=== PATIENT | male | born 1980 | race Caucasian/White ===

== ENCOUNTER 2018-03-06 08:59 | Emergency (ER) | payer MEDICAID, SELFPAY ==
[2018-03-06 09:12] VITALS: BP 142/87; PULSE 48; RESP 16; TEMP 36.7; O2SAT 96
--- NOTE | 2018-03-06 09:52 | DI.RPTCT_ITS ---
SYMPTOM/DIAGNOSIS: EPIGASTRIC PAIN WITH VOMITING. ON SUBOXONE CT ABDOMEN AND PELVIS: There are no prior comparison exams. Images were performed from the lung bases through the ischial tuberosities after IV and without oral contrast. The lung bases are clear. The liver , gallbladder, spleen, pancreas, adrenals and kidneys are unremarkable. The appendix appears normal. There is no bowel dilatation or inflammatory change. No free air or free fluid is seen. The bladder and prostate appear normal. Stool is seen in the rectum and sigmoid colon. IMPRESSION: No significant abnormality is identified in the abdomen or pelvis.
--- NOTE | 2018-03-06 09:54 | ED.GENADUL ---
Disposition Clinical Impression: Bradycardia, Gastritis Disposition: HOME Condition: Good Instructions: Gastritis (ED), Bradycardia (ED) Prescriptions: Ondansetron ODT [Zofran Odt] 4 mg PO BID PRN PRN #14 tabef PRN Reason: Referrals: NICO PADILLA [REPORT RECIPIENT] - 2 weeks Forms: Work Release Medical Decision Making - Lab Data Laboratory Results - last 24 hr 03/06/18 03/06/18 03/06/18 10:14 10:14 11:45 WBC 8.85 RBC 4.83 Hgb 14.8 Hct 43.4 MCV 89.9 MCH 30.6 MCHC 34.1 RDW 12.7 Plt Count 272 MPV 9.8 Immature Gran % 0.1 Neutrophils % 78.8 Lymphocytes % 12.5 Monocytes % 7.8 Eosinophils % 0.5 Basophils % 0.3 Absolute Neutrophils 6.97 H Absolute Lymphocytes 1.11 L Absolute Monocytes 0.69 Absolute Eosinophils 0.04 Absolute Basophils 0.03 Sodium 140 Potassium 4.0 Chloride 103 Carbon Dioxide 31.1 Anion Gap 5.9 BUN 15 Creatinine 1.09 Estimated GFR/1.73 m2 >= 60.00 Glucose 102 H Calcium 9.2 Magnesium 2.4 Total Bilirubin 0.8 AST 13 L ALT 25 Alkaline Phosphatase 52 Troponin I < 0.02 Total Protein 8.2 Albumin 4.6 Lipase 85 Urine Color Yellow Urine Clarity Clear Urine pH 7.0 Ur Specific [place] 1.015 Urine Protein Negative Urine Ketones 15 H Urine Blood Negative Urine Nitrite Negative Urine Bilirubin Negative Urine Urobilinogen 0.2 Ur Leukocyte Esterase Negative Urine Glucose Negative Urine Opiates Screen Urine Methadone Screen Ur Barbiturates Screen Ur Tricyclics Screen Ur Amphetamines Screen U Benzodiazepines Scrn Urine Cocaine Screen Ur THC Screen 03/06/18 11:45 WBC RBC Hgb Hct MCV MCH MCHC RDW Plt Count MPV Immature Gran % Neutrophils % Lymphocytes % Monocytes % Eosinophils % Basophils % Absolute Neutrophils Absolute Lymphocytes Absolute Monocytes Absolute Eosinophils Absolute Basophils Sodium Potassium Chloride Carbon Dioxide Anion Gap BUN Creatinine Estimated GFR/1.73 m2 Glucose Calcium Magnesium Total Bilirubin AST ALT Alkaline Phosphatase Troponin I Total Protein Albumin Lipase Urine Color Urine Clarity Urine pH Ur Specific [place] Urine Protein Urine Ketones Urine Blood Urine Nitrite Urine Bilirubin Urine Urobilinogen Ur Leukocyte Esterase Urine Glucose Urine Opiates Screen Positive Urine Methadone Screen Negative Ur Barbiturates Screen Negative Ur Tricyclics Screen Negative Ur Amphetamines Screen Negative U Benzodiazepines Scrn Negative Urine Cocaine Screen Negative Ur THC Screen Negative All values reviewed and within acceptable limits. Odd that he did not test positive for Benzos being we gave him Ativan. - EKG Data Rate: bradycardia Interpretation: no acute changes (reviewed by and with Dr. Murguia), nonspecific ST-T wave changes - Radiology Data Radiology results: report reviewed (CT by Dr. Hernandez: No significant abnormality is identified in the abdomen or pelvis. ) - Medical Decision Making Initial concern is SBO and/or pancreatitis. Will collect labs and CT to support. Possible withdrawals but I agree with him this is unlikely. Will provide Ativan IV for anxiety. Will hydrate with normal saline IV. I advised patient NPO until we confirm he does not have a surgical belly. Will treat gastritis with protonix. I apprised Harshda of lab impression and CT. He is feeling better after the medications. I discussed possible causes for the gastritis including but not limited to Suboxone, alcohol, ingestion, and less likely opiate withdrawal because he has not missed dose of his Suboxone. I advised he start PPI (Prilosec), continue Suboxone, and I will prescribe him Zofran and Ativan. I discussed risk of Benzo use and opiate use. I advised I would prescribe narcan as as well. I advise he f/u with Dr. Padilla to discuss bradycardia which he reports as new and the recurrent N/V. He again denies any cp or sob with the bradycardia. At this time we are waiting for the second troponin. He is asking for lunch. I advised liquid to bland diet for the next few days. Patient was able to keep fluids down but became nauseated after eating pudding. I discussed labs and CT scan and f/u. I prescribed Zofran only and advised to purchase Prilosec from [facility]. F/U with Dr. Padilla over the next two weeks to discuss ECG and detoxing from Suboxone and opiates all together. He is looking in to inpatient rehabilitation. Mother and Father are here to transport patient home. - Differential Diagnosis opiate withdrawels, SBO, pancreatitis, enteritis, gastritis History of Present Illness - General Chief complaint: Abd Prob Stated complaint: STOMACH PAINS Time Seen by Provider: 03/06/18 09:30 Source: patient, RN notes reviewed Mode of arrival: ambulatory Limitations: no limitations - History of Present Illness Initial comments: 38 y/o male here with c/o abdominal pain with N/V. Six days ago he began violently puking after having a few beers. This continued through the night but he seemed to feel better the next day. That night he started puking again. The next am he awakened feeling better until he ate and he began to puke again. This pattern continued for the next 5-6 days. He admits to taking Suboxone for a few years now for his opiate addiction. He started taking Percocet for previous injuries. 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 He also admits to heroin use but only by inhalation not by IV. He has battled opiate addiction for quite sometime. His is aware of him being here and she is concerned about withdrawal from opiates. She is encouraging him to get back into a program. He admits to being anxious. Denies any SI or HI. He is very concerned about his confidentiality with being here. He denies any cp, sob, or back pain. Onset/Timin -: week(s) Location: abdomen Radiation: non-radiation Severity scale (1-10): 7 Quality: aching, sharp Consistency: intermittent Improves with: other (pressure) Worsens with: none Associated Symptoms: nausea/vomiting Treatments Prior to Arrival: none - Related Data Buprenorphine/Naloxone [Suboxone 8 mg-2 mg Sl Film] 1 each SL DAILY 12/25/12 Colchicine 0.6 mg PO BID PRN 10/09/17 Ondansetron ODT [Zofran Odt] 4 mg PO BID PRN PRN #14 tabef 03/06/18 Allergies Allergy/AdvReac Type Severity Reaction Status Date / Time No Known Allergies Allergy Unverified 03/06/18 09:18 Review of Systems Constitutional: no symptoms reported Eyes: denies: vision change ENT: denies: throat pain, congestion Respiratory: no symptoms reported Cardiovascular: denies: chest pain Gastrointestinal: abdominal pain, nausea, vomiting. denies: diarrhea, hematemesis, melena Genitourinary: denies: dysuria Musculoskeletal: denies: back pain Skin: denies: rash Neurological: denies: headache Psychiatric: anxiety. denies: depression, auditory hallucinations, homicidal thoughts, suicidal thoughts Past Medical History - Past Medical History gout, depression, hx of prescription drug abuse Surgical history: other (left thumb tendon repair, pilonidal cyst) Psychiatric history: depression - Social History Alcohol use: rarely Drug use: none (current sobriety) General Exam - General Limitations: no limitations General appearance: alert, in no apparent distress - Head Head exam: Present: atraumatic, normal inspection - Eye Eye exam: Present: normal apperance - ENT ENT exam: Present: mucous membranes dry - Neck Neck exam: Present: normal inspection, full ROM - Respiratory Respiratory exam: Present: normal lung sounds bilaterally - Cardiovascular Cardiovascular Exam: Present: bradycardia, normal heart sounds - GI/Abdominal GI/Abdominal exam: Present: soft, normal bowel sounds (to lower quadrants), hypoactive bowel sounds (in upper quadrants). Absent: distended, tenderness (actually improved ith palpation), guarding, rebound, rigid - Extremities Exam Extremities exam: Present: normal inspection, full ROM - Back Exam Back exam: Present: normal inspection, full ROM. Absent: tenderness, CVA tenderness (R), CVA tenderness (L), rash noted - Neurological Exam Neurological exam: Present: alert, oriented X3, normal gait - Psychiatric Psychiatric exam: Present: normal affect, anxious - Skin Skin exam: Present: warm, dry, intact, normal color. Absent: rash Course Vital Signs - 24 hr 03/06/ 09:12 Temperature 36.7 C Pulse 48 L Respiratory 16 Rate Blood Pressure 142/87 Pulse Oximetry 96
[2018-03-06] MEDS: Ondansetron 4 MG/2 ML VIAL IVP (10:15)
[2018-03-06] MEDS: Normal Saline 1,000 ML 1000 ML IV ×2 (10:15→11:30)
[2018-03-06 10:19] LABS: Abs Immature Grans 0.01 k/cumm (0.0-0.09); Absolute Basophil Count 0.03 k/cumm (0.0-0.2); Absolute Eosinophil Count 0.04 k/cumm (0.0-0.7); Absolute Lymphocyte Count 1.11 k/cumm (1.2-3.4); Absolute Monocyte Count 0.69 k/cumm (0.11-0.7); Absolute Neutrophil Count 6.97 k/cumm (1.2-6.7); Basophils % 0.3; Eosinophils % 0.5; HCT 43.4 % (40.0-50.0); HGB 14.8 g/dL (13.5-17.5); Immature Grans % 0.1; Lymphocytes % 12.5; Mean Corp. HGB Concentration 34.1 g/dL (32.0-36.0); Mean Corpuscular Hemoglobin 30.6 pg (27.0-33.0); Mean Corpuscular Volume 89.9 fL (80-95); Mean Platelet Volume 9.8 fL (8.0-11.0); Monocytes % 7.8; Neutrophils % 78.8; Platelet Count 272 x1000/uL (130-400); RBC 4.83 m/cumm (4.50-6.00); RBC Distribution Width 12.7 % (11.8-14.1); White Blood Cell Count 8.85 k/cumm (4.4-10.8)
[2018-03-06] MEDS: Pantoprazole 40 MG VIAL IVP (10:20)
[2018-03-06] MEDS: LORazepam 2 MG/ML VIAL 1 MG IVP (10:25)
[2018-03-06 10:34] LABS: ALT 25 U/L (12-78); AST 13 U/L (15-37); Albumin 4.6 g/dL (3.4-5.0); Alkaline Phosphatase 52 U/L (46-116); Anion Gap 5.9 mmol/L (3-11); BUN 15 mg/dL (7-18); Bilirubin, Total 0.8 mg/dL (0.2-1.0); CO2 31.1 mmol/L (21.0-32.0); CREATININE 1.09 mg/dL (0.70-1.30); Calcium 9.2 mg/dL (8.5-10.1); Chloride 103 mmol/L (98-107); Glucose 102 mg/dL (70-100); Lipase 85 U/L (73-393); Magnesium 2.4 mg/dL (1.8-2.4); Sodium 140 mmol/L (136-145); Total Protein 8.2 g/dL (6.4-8.2)
[2018-03-06 10:35] LABS: Troponin I < 0.02 ng/mL (0.00-0.06)
[2018-03-06] MEDS: Omnipaque 350 MG/ML 100 ML BTL IJ (11:19)
[2018-03-06 11:58] LABS: Bilirubin Negative (Negative); Blood Negative (Negative); Clarity Clear; Glucose Negative (Negative); Ketones 15 mg/dL (Negative); Leukocyte Esterase Negative (Negative); Nitrite Negative (Negative); Specific Gravity 1.015 (1.005-1.025); Urobilinogen 0.2 EU/dL (Up TO 0.2)
[2018-03-06 12:07] LABS: *AMPHETAMINES SCREEN URINE Negative (Negative); *BARBITURATES SCREEN URINE Negative (Negative); *BENZODIAZEPINES SCREEN URINE Negative (Negative); Cannabinoids THC Negative (Negative); Cocaine Screen,Urine Negative (Negative); METHADONE URINE SCREEN Negative (Negative); OPIATES URINE SCREEN POSITIVE (Negative)
[2018-03-06 12:08] LABS: Tricyclic Antidepressants Negative (Negative)
[2018-03-06 13:33] LABS: Troponin I < 0.02 ng/mL (0.00-0.06)
[2018-03-06 13:55] VITALS: BP 148/79; PULSE 65; RESP 16; TEMP 36.7; O2SAT 99
== END 2018-03-06 14:00 | disposition home or self-care (01) ==
PROVIDERS: Nurse Practitioner Family; Emergency Provider Physician Assistant; PCP Internal Medicine
DX: K29.00 Acute gastritis without bleeding (principal); R00.1 Bradycardia, unspecified; R11.2 Nausea with vomiting, unspecified
CPT/HCPCS: 36415; 80053; 80307; 83690; 93005; 96361; 96374; 96375; 99285; 74177; 81003; 83735; 84484; 85025; 93010; J2060; J2405; J3490

== ENCOUNTER 2018-11-14 10:41 | Emergency (ER) | payer MEDICAID, SELFPAY ==
--- NOTE | 2018-11-14 10:55 | NUR.NOTE ---
at 1000 pt fell off a roof approximate 1.5 stories up. pt landed face first onto a wooden deck. the then fell of the deck into the snow at which point his left knee was punctured by a spike. pt denies LOC, headache or neck pain however pt did hit his head. primary complaint is puncture wound left knee and lower back pain.
[2018-11-14 10:59] VITALS: BP 121/78; PULSE 97; RESP 18; TEMP 36.8; O2SAT 97
--- NOTE | 2018-11-14 11:10 | ED.GENADUL_ITS ---
Discharge Plan Disposition Patient Disposition: HOME Condition: Stable Discharge Details Chief Complaint: Laceration Clinical Impression: Fall from roof, Abrasion of face, Back pain, Abrasion of back, Puncture wound of knee, left Primary Care Provider: Jose Enrique Padilla ED Provider: Shell Murguia Home Meds and New Rx's Prescriptions: New cephalexin [Keflex] 500 mg capsule 500 mg PO QID 1 Days Qty: 4 RF: 0 Discharge Instructions Instructions: Puncture Wound (ED), Head Injury (ED), Abrasion (ED), Back Pain (ED) Additional Instructions: Drink plenty of fluids and get plenty of rest. Alternate Tylenol and Motrin as needed and directed for pain. Take the antibiotics until finished. Follow-up with your scheduled appointment with your primary care doctor on Saturday. Call orthopedics to schedule a follow-up appointment for reevaluation in the next 1-2 weeks. Return immediately to the emergency department with any worsening or new concerning symptoms such as headaches, neck pain, chest pain, abdominal pain or any other concerns. Referrals: Irvin Estrada MD [ [facility] STAFF PHYSICIAN] - Discharge Data Discharge Date/Time-TO BE ENTERED AT DEPARTURE: 11/14/18 13:55 Discharge Physician: Shell Murguia Medical Decision Making 38-year-old male who presents with left-sided facial abrasion, back pain and left knee puncture wound after fall down 14 feet from a roof onto the ground. No LOC or vomiting. No neck pain, chest pain, abdominal pain, bilateral upper extremity or right lower extremity injury. Vitals within normal limits. Patient has left-sided facial abrasions. No step- off, trismus, jaw abnormality. No periorbital ecchymosis or tenderness. No evidence of globe rupture. He has superficial abrasions noted to his left lateral back but no midline C-spine/T-spine/L-spine or rib tenderness. Chest and abdomen nontender. He also has a left-sided lateral knee puncture wound with surrounding crepitus. No bony deformity. No pelvic instability. Due to his significant fall and complaints, would recommend a CT head and facial bones, chest x-ray versus CT chest and left knee x-ray. Patient is declining all imaging except left knee x-ray. Discussed with patient that there could be a concern for possible additional injuries that we may be missing without additional imaging and he is aware of these risks and still declining at this time. I will see the facial abrasions, he may have an underlying foreign body or fracture that may be missed and he is still declining. Last tetanus 2012. We will give a dose of ibuprofen and obtain a left knee x- ray. And due to high risk of contaminated wound, will give a Tdap at this time. 1300 --x-ray reviewed with Dr. Estrada. The puncture wound appears to be outside of the joint. Recommends washout and antibiotics for 24 hours. Patient denies any acute complaints at this time. Patient was able to eat a meal here and is requesting to go home. He denies headache, neck pain, chest pain, abdominal pain. We were able to obtain a urinalysis while here and it was negative for any blood. Dose of Keflex given here. Wound was washed out and irrigated. He is instructed to call Dr. Estrada and primary care doctor to arrange for follow-up appointment for next week and to return here immediately if worse. He is instructed to keep his wounds clean and dry. After patient discharge, he states he did not make it to the pharmacy and requested a call for the Keflex prescription which was done by nurse. Medical Records Medical records reviewed: Yes I reviewed the patient's medical records. Imaging Data Radiologic Study: Radiologist's impression: LEFT KNEE: Four views were obtained. There appears to be air in the soft tissues in the popliteal region and lateral to the patella. No acute fracture seen. Lab Data Lab results reviewed: Yes I reviewed the patient's lab results. Laboratory Tests Range/Units 11/14/18 12:40 Urine Color (Yellow) Yellow Urine Clarity Clear Urine pH (5-8) 7.0 Ur Specific [place] (1.005-1.025) 1.020 Urine Protein (Negative) mg/dL Trace H Urine Ketones (Negative) mg/dL Negative Urine Blood (Negative) Negative Urine Nitrite (Negative) Negative Urine Bilirubin (Negative) Negative Urine Urobilinogen (Up TO 0.2) EU/dL 0.2 Ur Leukocyte Esterase (Negative) Negative Urine RBC (0-2) 0-2 Urine WBC (0-5) HPF 0-2 Ur Epithelial Cells (Negative) HPF Rare Urine Crystals (Negative) HPF Negative Urine Bacteria (Negative) HPF Negative Urine Casts (Negative) LPF 0-2 hyaline Urine Mucus (Negative) Negative Ur Culture Indicated? No Urine Glucose (Negative) mg/dL Negative HPI General Mode of arrival: ambulatory . Date/Time Provider Initiated Documentation: 11/14/18 10:42 . Limitations to Documentation: no limitations . Information obtained by: patient . HPI Narrative: Patient is a 38-year-old male who presents with facial injury, back pain, and left knee puncture wound after fall off a roof at 10 AM this morning. 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 Patient states his face hit the ground sustaining left-sided facial abrasions. Patient states his left knee sustained a puncture wound from either a nail or steak in the ground. Patient states he was wearing jeans at the time. Patient states he was able to get up and ambulate. Patient denies LOC or vomiting. He denies neck pain, chest pain or abdominal pain. He denies any pain in his upper extremities or right lower extremity. He is unsure of his tetanus status. Related Data Home Medications Medication Instructions Recorded Confirmed cephalexin [Keflex] 500 mg PO QID 1 Days #4 cap 11/14/18 Previous Rx's Medication Instructions Recorded cephalexin [Keflex] 500 mg PO QID 1 Days #4 cap 11/14/18 Allergies Allergy/AdvReac Type Severity Reaction Status Date / Time No Known Allergies Allergy Unverified 11/14/18 11:00 General Stated Complaint: Laceration CASSANDRA: 3 Review of Systems Review of Systems All systems reviewed & are unremarkable except as noted in HPI and below Constitutional Reports as per HPI, Denies chills and Denies fever(s) Eyes Denies blurry vision ENT Denies dizziness, Denies sore throat and Denies throat swelling Cardiovascular Denies chest pain and Denies dyspnea Respiratory Denies cough and Denies dyspnea Gastrointestinal Denies abdominal pain, Denies diarrhea and Denies vomiting Genitourinary Denies hematuria and Denies dysuria Musculoskeletal Reports back pain and Denies numbness Integumentary/Breasts Denies lesions and Denies rash Neurologic Denies dizziness, Denies focal weakness and Denies numbness Allergic/Immunologic Denies throat swelling [facility] Medical History Depression (Chronic) Gout (Chronic) Surgical History H/O thumb surgery (Acute) History of surgical removal of pilonidal cyst (Acute) Social History Smoking/Tobacco Use Status: Current every day Alcohol Intake: current Alcohol Intake frequency: a few times a month Drug use: Current Sobriety Substance use type: does not use Do you feel safe at home: Yes Do you feel safe in your relationship?: Yes Exam Const General: cooperative and healthy appearing Orientation: alert and awake [facility] Head images: 1. Superficial abrasion and mild tenderness to palpation L facial cheek. No step-off, ecchymosis. Ears: hearing grossly normal bilaterally, external ears normal and TM's normal bilaterally General nose exam: external nose normal Mouth: oral mucosae normal and tongue normal Teeth and gingiva: dentition normal Throat: posterior oropharynx normal Other: No pain with opening or closing jaw. No tenderness palpation of bilateral TMJ. No tenderness to palpation of mandible. No trismus. Eyes General: appearance normal, both eyes and all related structures Periorbital: periorbital findings normal Eyelids: eyelids normal Pupils: PERRL EOM: EOM intact bilaterally Other: No tenderness to palpation of bilateral periorbital regions. Neck Neck: normal visual inspection Lymphatic: no lymphadenopathy noted Chest Chest: normal inspection of the chest, normal palpation of entire chest wall and no tenderness Resp Effort & Inspection: normal respiratory effort and able to speak in complete sentences Auscultation: clear to auscultation bilaterally Cardio Rate: regular rate Rhythm: regular rhythm GI Inspection: normal to inspection and no abdominal wall ecchymosis Palpation: soft, not firm, no guarding, no hepatosplenomegaly, no masses and nontender Auscultation: normal bowel sounds Back/Spine/Pelvis Cervical Spine: No cervical spinal tenderness Thoracic/Lumbar Spine: No thoracic spinal tenderness and No lumbar spinal tenderness Other: Patient has no tenderness of any muscular or spinal portion of the back. Back/spine/pelvis image: 1. Minimal superficial abrasions noted to left mid back. No step-off, crepitus, tenderness to palpation. Skin General skin exam: no rashes or lesions noted Neuro General: alert and awake Cognition: normal cognition Speech: speech normal Gait: normal gait Motor: muscle tone normal throughout Sensory Exam: no sensory deficits noted Extrem Knee images: 2 1. 1.5 x 1.5 open puncture wound noted to left lateral knee. There is surrounding crepitus. There is pain with range of motion but no obvious ligamentous instability. No deformity. Other: No pain with range of motion or tenderness palpation of bilateral upper extremities, or right lower extremity. No pain with range of motion at left hip, left ankle or left foot. Psych Appearance: grossly normal Mental Status: mental status grossly normal Speech and Movement: speech and movement normal Affect: normal affect Thought Process: normal Course Vital Signs Temperature 98.2 F 11/14/18 10:59 Pulse 97 H 11/14/18 10:59 Respiratory Rate 18 11/14/18 10:59 Blood Pressure 121/78 11/14/18 10:59 Pulse Oximetry 97 11/14/18 10:59 Temperature 98.2 F 11/14/18 10:59 Temperature Source Skin 11/14/18 10:59 Pulse 97 H 11/14/18 10:59 Respiratory Rate 18 11/14/18 10:59 Respiratory Effort 11/14/18 11:01 Blood Pressure 121/78 11/14/18 10:59 Blood Pressure Position Sitting 11/14/18 10:59 Pulse Oximetry 97 11/14/18 10:59 Oxygen Delivery Method Room Air 11/14/18 10:59 Oxygen Flow Rate 0 11/14/18 10:59 Pain Level 5 11/14/18 10:59
--- NOTE | 2018-11-14 11:44 | DI.RAD_ITS ---
SYMPTOMS/DIAGNOSIS: S/P FALL FROM ROOF, ? ACUTE FRACTURE VS FOREIGN BODY LEFT KNEE: Four views were obtained. There appears to be air in the soft tissues in the popliteal region and lateral to the patella. No acute fracture seen.
[2018-11-14] MEDS: Ibuprofen 600 MG TAB PO (11:52)
--- NOTE | 2018-11-14 12:37 | W.ORTHOCONSU ---
Date of service: 11/14/18 Time of Service: 12:37 History of Present Illness Chief Complaint: Left leg puncture wound Narrative: Harshad is a 38-year-old who fell off the roof today. He landed in the snow bank. In the snow bank was a large spike attached to a board which penetrated the lateral aspect of his left knee. He was able to disengage the spike from his leg. There was some bleeding but no significant fluid discharge. No specific issues with this left knee in the past. He was able to ambulate. He denies any significant pain with ambulation but only some tightness of the lateral aspect the left leg. No numbness or tingling. He did land on his face but denies loss of consciousness. No pain in the right leg or bilateral upper extremities. Consult Reason Left leg wound Assessment and Plan (1) Puncture wound of knee, left: Current visit: No Status: Acute Harshad is a 38-year-old who suffered a puncture wound to the left knee area. It does not seem to penetrate the left knee joint. It is not grossly contaminated. The x-ray shows no air within the joint itself but in the soft tissues of the posterior lateral left knee. I would recommend aggressive irrigation and dressing. I would not close the wound. I expect that it will granulate in on its own over a few weeks time. He should not need any formal follow-up unless he has new pain or concerns about the healing of the wound. Qualifiers: Encounter type: initial encounter Qualified Code(s): S81.032A - Puncture wound without foreign body, left knee, initial encounter Review of Systems Review of Systems All systems reviewed & are unremarkable except as noted in HPI and below PFSH Medical History Depression (Chronic) Gout (Chronic) Surgical History H/O thumb surgery (Acute) History of surgical removal of pilonidal cyst (Acute) Social History Smoking/Tobacco Use Status: Current every day Alcohol Intake: current Alcohol Intake frequency: a few times a month Drug use: Current Sobriety Substance use type: does not use Do you feel safe at home: Yes Do you feel safe in your relationship?: Yes Exam Narrative Exam Narrative: Harshad was seen ambulating back to the stretcher bed. He seemed to have no significant gait abnormalities and no inability to bear weight on the left leg. The left leg was further investigated which showed an approximately 1 cm puncture wound to the lateral aspect of the left knee. There is no gross contamination. There is no drainage. There is no bleeding or signs of synovial fluid. The underlying IT band was visible but not penetrated. There was some swelling and crepitus proximal to this location and slightly posterior to the IT band. Knee range of motion showed no defects in the underlying tissues nor extravasation of joint fluid. He was able to move the knee fully through an arc of motion of 0-120 degrees. No significant pain. No effusion. Sensation was intact light touch over the deep and superficial peroneal nerve and tibial nerve. The foot was warm well perfused with a palpable DP and PT pulse. Results Last Vital Signs Temp 36.8 C 11/14/18 10:59 Pulse 97 H 11/14/18 10:59 Resp 18 11/14/18 10:59 BP 121/78 11/14/18 10:59 Pulse Ox 97 11/14/18 10:59
[2018-11-14 12:54] LABS: Bilirubin Negative (Negative); Blood Negative (Negative); Clarity Clear; Glucose Negative (Negative); Ketones Negative (Negative); Leukocyte Esterase Negative (Negative); Nitrite Negative (Negative); Urobilinogen 0.2 EU/dL (Up TO 0.2)
[2018-11-14 13:16] LABS: Bacteria Negative HPF (Negative); C & S Indicated? No; Casts 0-2 Hyaline LPF (Negative); Crystals Negative HPF (Negative); Epithelial Cells Rare HPF (Negative); Mucus Negative (Negative); RBC 0-2 (0-2); WBC 0-2 HPF (0-5)
[2018-11-14] MEDS: Cephalexin 500 MG CAP PO (13:46)
[2018-11-14 13:48] VITALS: BP 140/66; PULSE 85; RESP 16; TEMP 37; O2SAT 99
[2018-11-14 13:55] VITALS: BP 140/66; PULSE 85; RESP 16; TEMP 37; O2SAT 99
[2018-11-14 14:09] VITALS: TEMP 37.1
== END 2018-11-14 13:55 | disposition home or self-care (01) ==
PROVIDERS: Emergency Provider Physician Assistant; PCP Internal Medicine
DX: S81.032A Puncture wound without foreign body, left knee, initial encounter (principal); S00.81XA Abrasion of other part of head, initial encounter; S20.412A Abrasion of left back wall of thorax, initial encounter; M54.6 Pain in thoracic spine; W13.2XXA Fall from, out of or through roof, initial encounter; Z53.29 Procedure and treatment not carried out because of patient's decision for other reasons
CPT/HCPCS: 90471; 99253; 99283; 73564; 81003; 81015

== ENCOUNTER 2023-02-08 15:22 | Emergency (ER) | payer MEDICAID, SELFPAY ==
[2023-02-08] VITALS (41 sets, daily range): BP systolic 127–167; BP diastolic 79–126; PULSE 0–67; RESP 9–24; TEMP 36.6; O2SAT 85–100
--- NOTE | 2023-02-08 15:15 | RT.EKG_ITS ---
APPROVED REPORT Exam: Resting ECG Reason for Exam: nausea, abd pain Patient Location: E HR:57 bpm ECG Measurements Heart Rate 57 AXIS GA 96 P 85 QRSd 89 QRS 72 QT 437 T 68 QTc 424 Conclusion Sinus bradycardia...rate< 60 ST elev, probable normal early repol pattern...ST elevation, age<55
--- NOTE | 2023-02-08 15:42 | ED.GENADUL_ITS ---
Discharge Plan Discharge Details Chief Complaint: Abd Prob Primary Care Provider: Jose Enrique Padilla ED Provider: Fadi Rinaldi Medical Decision Making 155 -- 43-year-old male here with severe epigastric pain associated nausea vomiting that started around 1 PM. Patient is a daily fentanyl user, last used this morning but is concerned that fentanyl was not his typical dose and is concerned about withdrawal. Consider other etiology including bowel perforation, AAA or other acute surgical pathology. Plan to treat pain with Dilaudid 1 mg IV. I will give Zofran IV for nausea. We will obtain CT of the abdomen pelvis. Considered atypical presentation of ACS. EKG was reviewed and interpreted by me: Please report, sinus bradycardia 57 bpm, subtle ST elevation noted throughout concerning for likely early repole pattern. Plan to check troponin and trend EKG and troponin. 1653 --patient reassessed and continues to have pain. He had a little resolution with initial dose of Dilaudid. I will redose Dilaudid at this time. Initial labs reviewed and lactic acidosis noted. Patient has significant le ukocytosis. Hypercalcemia also noted. Patient receiving 1 L normal saline. HPI General Mode of arrival: ambulatory . Date/Time Provider Initiated Documentation: 02/08/23 15:25 . Limitations to Documentation: no limitations . Information obtained by: patient . HPI Narrative: 43-year-old male with opioid use disorder presents with chief complaint of abdominal pain. Patient notes rather sudden onset of severe epigastric abdominal pain around 1 PM today. He has associated nausea and vomiting. Patient is a daily fentanyl user and last used this a.m. No history of IV drug use. Related Data Allergies Allergy/AdvReac Type Severity Reaction Status Date / Time No Known Allergies Allergy Unverified 11/14/18 11:00 General Stated Complaint: Abd Prob CASSANDRA: 2 Review of Systems Constitutional Constitutional: Denies fever(s) Cardiovascular Cardiovascular: Denies chest pain Gastrointestinal Gastrointestinal: Reports abdominal pain, Reports nausea and Reports vomiting PFSH All Active Problems (Updated 11/14/18 @ 14:51 by Irvin Estrada MD) Puncture wound of knee, left (Acute) Medical History (Updated 11/14/18 @ 14:51 by Irvin Estrada MD) Depression Gout Surgical History H/O thumb surgery History of surgical removal of pilonidal cyst Social History Smoking/Tobacco Use Status: Current every day Smoking risk assessment performed?: Yes Alcohol Intake: current Alcohol Intake frequency: a few times a month Drug use: Daily Substance use type: opiates Do you feel safe at home: Yes Do you feel safe in your relationship?: Yes Exam Const General: cooperative, uncomfortable and acute distress severe HENMT Head: normocephalic Mouth: moist mucous membranes Eyes Conjunctivae: normal conjunctivae Sclera: normal sclerae Neck Neck: trachea midline and supple Resp Auscultation: clear to auscultation bilaterally, no rales, no rhonchi and no wheezes Cardio Rate: regular rate and not tachycardic Rhythm: regular rhythm GI Palpation: soft, not firm, no guarding, no masses and not rigid Skin General skin exam: no rashes or lesions noted Neuro General: patient alert, patient awake, patient oriented x3 and tone normal Extrem General: no edema Psych Appearance: grossly normal Mental Status: mental status grossly normal Speech and Movement: speech and movement normal Course Vital Signs Vital signs: Vital Signs Temperature 36.6 C 02/08/23 15:24 Pulse 66 02/08/23 15:24 Respiratory Rate 18 02/08/23 15:24 Blood Pressure 144/98 H 02/08/23 15:24 Pulse Oximetry 98 02/08/23 15:24 Temperature 36.6 C 02/08/23 15:24 Temperature Source Oral 02/08/23 15:24 Pulse 66 02/08/23 15:24 Respiratory Rate 18 02/08/23 15:24 Respiratory Effort Normal, Non-Labored 02/08/23 15:33 Blood Pressure 144/98 H 02/08/23 15:24 Blood Pressure Position Supine 02/08/23 15:24 Pulse Oximetry 98 02/08/23 15:24 Oxygen Delivery Method Room Air 02/08/23 15:24 Oxygen Flow Rate 0 02/08/23 15:24
[2023-02-08 15:44] LABS: Abs Immature Grans 0.08 10^3/uL (0.0-0.06); Absolute Eosinophil Count 0.02 10^3/uL (0.0-0.7); Absolute Lymphocyte Count 0.97 10^3/uL (1.2-3.4); Absolute Monocyte Count 1.16 10^3/uL (0.1-0.8); Absolute Neutrophil Count 13.56 10^3/uL (1.2-6.7); Basophils % 0.6; Eosinophils % 0.1; HCT 44.5 % (40.0-50.0); HGB 15.3 g/dL (13.5-17.5); Immature Grans % 0.5; Lymphocytes % 6.1; MCH 29.6 pg (27.0-33.0); MCHC 34.4 % (32.0-36.0); MCV 86 fL (80-95); MPV 9.9 fL (8.0-11.0); Monocytes % 7.3; Neutrophils % 85.4; Platelet Count 359 10^3/uL (130-400); RBC 5.17 10^6/uL (4.36-5.78); RDW 12.8 % (11.8-14.1); RDW-SD 39.8 fL; WBC 15.88 10^3/uL (4.4-10.8)
[2023-02-08] MEDS: HYDROmorphone 2 MG/ML SYR 1 MG IVP ×2 (15:49→16:47)
[2023-02-08] MEDS: Ondansetron 4 MG/2 ML VIAL IVP (15:50)
[2023-02-08 16:01] LABS: ALT 43 U/L (16-63); AST 22 U/L (15-37); Albumin 5.6 g/dL (3.4-5.0); Alkaline Phosphatase 78 U/L (46-116); Anion Gap 16.9 mmol/L (3-11); BUN 22 mg/dL (7-18); Bilirubin, Total 0.8 mg/dL (0.2-1.0); CO2 25.1 mmol/L (21.0-32.0); CREATININE 1.9 mg/dL (0.70-1.30); Chloride 103 mmol/L (98-107); Estimated GFR 44.61 (mL/min/1.73m2); Glucose 168 mg/dL (74-106); Lipase 18 U/L (16-77); Magnesium 1.6 mg/dL (1.8-2.4); Potassium 4.1 mmol/L (3.5-5.1); Sodium 145 mmol/L (136-145); Total Protein 9.4 g/dL (6.4-8.2); Troponin I < 50 ng/L (<or=60)
[2023-02-08 16:03] LABS: Calcium 12.1 mg/dL (8.5-10.1)
[2023-02-08] MEDS: Lactated Ringers 1,000 ML 1000 ML IV (16:12)
[2023-02-08 16:49] LABS: Lactate 3.5 mmol/L (0.6-1.4)
--- NOTE | 2023-02-08 16:59 | DI.CT_ITS ---
Exam(s) CT ABDOMEN PELVIS CTA EXAM: CT ABDOMEN PELVIS CTA CLINICAL HISTORY: abd pain severe. TECHNIQUE: Imaging Protocol: Axial CT angiography was performed with multi-slice acquisition and m ulti-planar and/or 3D reconstructions. CONTRAST MATERIAL: Intravenous: Omnipaque 350 Contrast volume:100 ml Oral: / no COMPARISON: CT ABD PELVIS WITH CONTRAST from 03/06/2018 FINDINGS: Vascular Structures: Celiac Perkins/SMA: No evidence of stenosis. Renal Arteries: No evidence of stenosis. There is a single renal artery perfusing each kidney. Aorta: No aneurysm. No dissection. Pelvis: Iliac Arteries: No evidence of stenosis. Common Femoral Arteries: No evidence of stenosis. Soft Tissues: Lung bases:Normal. Liver: Enlarged. Hepatic steatosis. No measurable mass. Gallbladder and biliary tract: No radiodense calculus or dilation. Pancreas: Normal density, no abnormal calcifications or inflammatory process. Spleen: Normal. Kidneys: Normal size, contour and axis. No radiodense stones or obstructive uropathy. No masses seen. Adrenal glands: No masses seen. Bladder: Symmetric distention, no gross wall thickening. Bowel: No obstruction or bowel wall thickening. Mild diverticulosis. Appendix normal. Peritoneal cavity: No ascites, collection or mesenteric inflammatory response. Bones: Degenerative disc changes. Lymph nodes: Within normal limits. IMPRESSION: Normal CT Angiogram of the Abdomen. No evidence of atherosclerotic changes. No evidence of aneurysm. RADIATION DOSE DELIVERED: 882.1mGy.cm Total DLP DATA REPOSITORY: All CT scans at this facility are submitted to the National Radiology Data Registry (NRDR) Dose Index Registry (DIR) with the [employer] (ACR). RADIATION OPTIMIZATION: All CT scans at this facility use at least one of these dose optimization te chniques: automated exposure control; mA and/or kV adjustment per patient size (includes targeted exa ms where dose is matched to clinical indication); or iterative reconstruction.
--- NOTE | 2023-02-08 17:00 | RT.EKG_ITS ---
APPROVED REPORT Exam: Resting ECG Reason for Exam: bradycardic Patient Location: E HR:45 bpm ECG Measurements Heart Rate 45 AXIS CO [id number] P [id number] QRSd 82 QRS 70 QT 502 T 64 QTc 432 Conclusion Junctional rhythm...absent P waves, slow V-rate
[2023-02-08] MEDS: Normal Saline - Diluent 50 ML VIAL IJ (17:13)
[2023-02-08] MEDS: Omnipaque 350 MG/ML 100 ML BTL IJ (17:16)
[2023-02-08] MEDS: Normal Saline Flush 10 ML SYR IVP (17:17)
[2023-02-08] MEDS: MAGNESIUM SULFATE 1 GM/100 ML BAG IVPB (17:27)
--- NOTE | 2023-02-08 17:30 | DI.RAD_ITS ---
Exam(s) XR PORTABLE CHEST AP EXAM: XR PORTABLE CHEST AP CLINICAL HISTORY: pain after vomiting TECHNIQUE: 2D digital imaging was performed. COMPARISON: CR RIGHT SHOULDER COMPLETE from 10/09/2017 FINDINGS: LUNGS: Clear. No pleural abnormality seen. HEART: Normal size. AORTA: Normal diameter. BONES: Unremarkable for age. Soft tissues: Unremarkable. IMPRESSION: No acute findings. DATA REPOSITORY: RADIATION DOSE DELIVERED:
--- NOTE | 2023-02-08 17:56 | DI.VRAD_ITS ---
PROCEDURE INFORMATION: Exam: CTA Abdomen and Pelvis With Contrast Exam date and time: 02/08/2023 5:14 PM Age: 43 years old Clinical indication: Abdominal pain; Acute TECHNIQUE: Imaging protocol: Computed tomographic angiography of the abdomen and pelvis with contrast. Exam focused on the arteries. 3D rendering (Not supervised by radiologist): MIP and/or 3D reconstructed images were created by the technologist. Contrast material: OMNIPAQUE 350; Contrast volume: 100 ml; Contrast route: INTRAVENOUS (IV); COMPARISON: CT ABD PELVIS WITH CONTRAST 03/06/2018 11:02 AM FINDINGS: Aorta: No aortic aneurysm. No aortic dissection. Celiac trunk and mesenteric arteries: No occlusion or significant stenosis. Renal arteries: No occlusion or significant stenosis. Right iliac arteries: No occlusion or significant stenosis. Left iliac arteries: No occlusion or significant stenosis. Liver: No mass. Gallbladder and bile ducts: Unremarkable. No calcified stones. No ductal dilation. Pancreas: Unremarkable. No mass. No ductal dilation. Spleen: Unremarkable. No splenomegaly. Adrenal glands: Unremarkable. No mass. Kidneys and ureters: Unremarkable. No solid mass. No hydronephrosis. Stomach and bowel: Unremarkable. No obstruction. No mucosal thickening. Appendix: No evidence of appendicitis. Intraperitoneal space: Unremarkable. No free air. No significant fluid collection. Lymph nodes: Unremarkable. No enlarged lymph nodes. Urinary bladder: Unremarkable. No mass. Reproductive: Unremarkable as visualized. Bones/joints: No acute fracture. Moderate disc space narrowing L4-L5 and moderate to severe disc space narrowing L5-S1. Soft tissues: Unremarkable. IMPRESSION: Unremarkable CTA. Dictated and Authenticated by: Johnathan Hall MD. Ordering:BALTAZAR Aponte MD
--- NOTE | 2023-02-08 17:57 | DI.VRAD_ITS ---
PROCEDURE INFORMATION: Exam: XR Chest Exam date and time: 02/08/2023 5:49 PM Age: 43 years old Clinical indication: Pain; Chest pressure TECHNIQUE: Imaging protocol: Radiologic exam of the chest. Views: 1 view. COMPARISON: CT ABDOMEN PELVIS CTA 02/08/2023 5:14 PM FINDINGS: Lungs: The lungs are normally aerated. Examination consolidations or pulmonary. Pleural spaces: No pleural effusions or pneumothorax. Heart/Mediastinum: Unremarkable. No cardiomegaly. Bones/joints: The osseous structures are unremarkable. IMPRESSION: No acute cardiopulmonary disease. Dictated and Authenticated by: Johnathan Hall MD. Ordering:KADY Beatty MD
[2023-02-08] MEDS: LORazepam 2 MG/ML VIAL 1 MG IVP (18:30)
[2023-02-08] MEDS: diphenhydrAMINE 50 MG/ML VIAL 25 MG IVP (18:30)
[2023-02-08] MEDS: Normal Saline 1,000 ML 1000 ML IV (18:30)
[2023-02-08 19:00] LABS: Troponin I < 50 ng/L (<or=60)
[2023-02-08 21:12] LABS: Lactate 1.2 mmol/L (0.6-1.4)
[2023-02-08 21:28] LABS: ALT 33 U/L (16-63); AST 25 U/L (15-37); Albumin 4.7 g/dL (3.4-5.0); Alkaline Phosphatase 67 U/L (46-116); Anion Gap 12.9 mmol/L (3-11); BUN 18 mg/dL (7-18); Bilirubin, Total 0.6 mg/dL (0.2-1.0); CO2 27.1 mmol/L (21.0-32.0); CREATININE 1.4 mg/dL (0.70-1.30); Calcium 9.9 mg/dL (8.5-10.1); Chloride 105 mmol/L (98-107); Estimated GFR 64.36 (mL/min/1.73m2); Glucose 115 mg/dL (74-106); Potassium 4.6 mmol/L (3.5-5.1); Sodium 145 mmol/L (136-145); Total Protein 8.3 g/dL (6.4-8.2)
--- NOTE | 2023-02-08 21:53 | W.EDPROG ---
Date of service: 02/08/23 Time of Service: 21:53 Medical Decision Making Nausea vomiting greatly improved after fluids and medication. Lactate and hypercalcemia has resolved. Likely symptomatic hypocalcemia. Negative CT scan. Sign Out Sign Out Data: Sign Out Comment: Care to be signed out to Dr. Edward with plan to follow-up on CT of the abdomen pelvis, labs pending, reassess patient for disposition. EKG showing a bradycardic junctional rhythm. He does have hypomagnesemia and I will give magnesium 1 g IV. Last updated by Fadi Rinaldi MD at 02/08/23 17:09 Discharge Plan Disposition Patient Disposition: Home Condition: Improving Discharge Details Chief Complaint: Abd Prob Clinical Impression: Hypercalcemia, Nausea & vomiting Primary Care Provider: Jose Enrique Padilla ED Provider: Rogerio Edward Discharge Instructions Instructions: Acute Nausea and Vomiting (ED), Hypercalcemia (ED)
[2023-02-08] MEDS: Mylanta Suspension 30 ML CUP PO (22:08)
== END 2023-02-08 22:45 | disposition home or self-care (01) ==
PROVIDERS: Student in an Organized Health Care Education/Training Program; Emergency Provider Emergency Medicine; PCP Internal Medicine
DX: R11.2 Nausea with vomiting, unspecified (principal); E83.52 Hypercalcemia; E83.42 Hypomagnesemia; F11.90 Opioid use, unspecified, uncomplicated; R10.13 Epigastric pain
CPT/HCPCS: 80053; 83690; 93005; 96361; 96365; 96375; 96376; 99285; 71045; 74174; 83605; 83735; 84484; 85025; 93010; 99284; J1170; J1200; J2060; J2405; J3475; J3490